=== PATIENT | female | born 1940 ===

== ENCOUNTER 2017-10-11 13:18 | Inpatient (IN) | payer MEDICARE, BC ==
[2017-10-11 13:28] VITALS: BMI 28.3
--- NOTE | 2017-10-11 13:46 | ED PDOC ---
Arrival/HPI - General Chief Complaint: Trauma Time Seen by Provider: 10/11/17 13:28 - History of Present Illness Narrative History of Present Illness (Text): 10/11/17 13:45 A 76 year old female, whose past medical history includes hypertension, hyperlipidemian and DM, presents to the emergency department complaining of left sided facial swelling status post fall. Patient reports shw was at [facility] when she started experiencing acute dizzyness and fell to the ground hitting her head. Patient reports dizzyness was resolved upon arrival to the emergency room. Patient denies any fever, chills, chest pain, shortness of breath, nausea, vomiting, diarrhea, urinary symptoms, back pain, neck pain, headache, or any other complaints. PMD: Dr. Raman Past Medical History - Provider Review Nursing Documentation Reviewed: Yes - Cardiac Hx Hypertension: Yes - Endocrine/Metabolic Hx Diabetes Mellitus Type 1: Yes - Psychiatric Hx Substance Use: No Family/Social History - Physician Review Nursing Documentation Reviewed: Yes Family/Social History: Unknown Family HX Smoking Status: Never Smoked Hx Alcohol Use: No Hx Substance Use: No Allergies/Home Meds Allergies/Adverse Reactions: Allergies No Known Allergies Allergy (Verified 10/11/17 13:32) Home Medications: Home Meds Medication Instructions Recorded Confirmed Losartan [Cozaar] 50 mg PO DAILY 10/11/17 10/11/17 amLODIPine [Norvasc] 5 mg PO DAILY 10/11/17 10/11/17 metFORMIN [glucOPHAGE] 500 mg PO BID 10/11/17 10/11/17 Review of Systems - Physician Review All systems were reviewed & negative as marked: Yes - Review of Systems Constitutional: absent: Fevers, Night Sweats Respiratory: absent: SOB Cardiovascular: absent: Chest Pain Gastrointestinal: absent: Diarrhea, Nausea, Vomiting Genitourinary Female: absent: Urine Output Changes Musculoskeletal: absent: Back Pain, Neck Pain Neurological: Dizziness (resolved upon arrival to Emergency room ), Other ( Swelling to the left side of her face ). absent: Headache Physical Exam Vital Signs Reviewed: Yes Vital Signs Temp Pulse Resp BP Pulse Ox 10/11/17 15:14 91 H 18 162/89 H 99 10/11/17 13:29 98.4 F 91 H 18 144/82 100 Temperature: Afebrile Blood Pressure: Normal Pulse: Tachycardic Respiratory Rate: Normal Appearance: Positive for: Well-Appearing, Non-Toxic, Comfortable Pain Distress: None Mental Status: Positive for: Alert and Oriented X 3 - Systems Exam Head: Present: Atraumatic, Normocephalic, Other. No: Tenderness, Contusion, Swelling, Ecchymosis, Abrasion, Laceration (hematoma under left eye ) Pupils: Present: PERRL Extroacular Muscles: Present: EOMI Conjunctiva: Present: Normal Mouth: Present: Moist Mucous Membranes Neck: Present: Normal Range of Motion Respiratory/Chest: Present: Clear to Auscultation, Good Air Exchange. No: Respiratory Distress, Accessory Muscle Use Cardiovascular: Present: Regular Rate and Rhythm, Normal S1, S2. No: Murmurs Abdomen: No: Tenderness, Distention, Peritoneal Signs Back: Present: Normal Inspection Upper Extremity: Present: Normal Inspection. No: Cyanosis, Edema Lower Extremity: Present: Normal Inspection. No: Edema Neurological: Present: GCS=15, CN II-XII Intact, Speech Normal Skin: Present: Warm, Dry, Normal Color. No: Rashes Psychiatric: Present: Alert, Oriented x 3, Normal Insight, Normal Concentration Medical Decision Making ED Course and Treatment: 10/11/17 13:51 Impression: A 76 year old female presents to the emergency department complaining of left sided facial swelling status post fall Plan: -- CT of Cervical Spine without contrast -- Heat CT without contrast -- CT of Maxillofacial without Contrast -- Labs -- CBC -- COAG -- Chest X-ray -- Urinalysis -- Reassess and disposition Prior Visits: Notes and results from previous visits were reviewed. Progress Notes: 10/11/17 13:56 EKG shows NSR at 91bpm with LAD and t wave inversions in V2-v3 and III with no prior for comparison 10/11/17 14:37 Dictator : Bahman Cooley MD PROCEDURE: CT MAXILLOFACIAL BONES WITHOUT CONTRAST IMPRESSION: There is soft tissue swelling and hematomas anterior to the left orbit and maxilla. There is no fracture. PROCEDURE: CT HEAD WITHOUT CONTRAST. IMPRESSION: Chronic microvascular changes. No acute intracranial findings. 10/11/17 14:[address] Raman, who is aware and agrees with emergency department management plan to admit patient to telemetry for further observation. 10/11/17 14:48 Dictator : Bahman Cooley MD PROCEDURE: CT CERVICAL SPINE WITHOUT CONTRAST IMPRESSION: No acute findings. 10/11/17 14:56 Dictator : Bahman Cooley MD Procedure: CHEST RADIOGRAPH, 1 VIEW IMPRESSION: No active disease. - Lab Interpretations Lab Results: 10/11/17 14:59 10/11/17 14:59 Lab Results 10/11/17 15:05: POC Glucose (mg/dL) 132 H 10/11/17 14:59: Sodium 138, Potassium 4.0, Chloride 100, Carbon Dioxide 23, Anion Gap 19, BUN 23 H, Creatinine 1.0, Est GFR ( Amer) > 60, Est GFR ( Non-Af Amer) 54, Random Glucose 129 H, Calcium 10.1, Total Bilirubin 1.5 H, AST 32, ALT 25, Alkaline Phosphatase 105, Lactate Dehydrogenase 434, Total Creatine Kinase 96, Troponin I < 0.01, Total Protein 8.2, Albumin 4.9 H, Globulin 3.4, Albumin/Globulin Ratio 1.4 10/11/17 14:59: PT 10.6, INR 0.93, APTT 33.4 10/11/17 14:59: WBC 10.1, RBC 4.79, Hgb 14.5, Hct 42.5, MCV 88.7, MCH 30.3, MCHC 34.1, RDW 12.9, Plt Count 239, MPV 9.9, Gran % 72.9 H, Lymph % (Auto) 20.9 L, Bollinger % (Auto) 5.6, Eos % (Auto) 0.3 L, Baso % (Auto) 0.3, Gran # 7.37 H, Lymph # (Auto) 2.1, Bollinger # (Auto) 0.6, Eos # (Auto) 0.0, Baso # (Auto) 0.03 10/11/17 14:48: Urine Color Yellow, Urine Appearance Clear, Urine pH 6.0, Ur Specific Imperial 1.015, Urine Protein Negative, Urine Glucose (UA) Negative, Urine Ketones Negative, Urine Blood Negative, Urine Nitrate Negative, Urine Bilirubin Negative, Urine Urobilinogen 1.0 H, Ur Leukocyte Esterase Moderate H, Urine RBC 0 - 2, Urine WBC 15 - 20, Ur Epithelial Cells 6 - 8, Amorphous Sediment Few, Urine Bacteria Many, Urine Other Uyeast - RAD Interpretation Radiology Orders: 10/11/17 13:41 CERVICAL SPINE W/O CONTRAST [CT] Stat HEAD W/O CONTRAST [CT] Stat MAXILLOFACIAL W/O CONTRAST [CT] Stat CHEST ONE VIEW [RAD] Stat - Medication Orders Current Medication Orders: Ceftriaxone Sodium (Rocephin) 1 gm IVPB STAT STA PRN Reason: Protocol Stop: 10/11/17 15:39 Discontinued Medications Aspirin (Aspirin Chewable) 81 mg PO STAT STA Stop: 10/11/17 15:15 Oxycodone/Acetaminophen (Percocet 5/325 Mg Tab) 1 tab PO STAT STA Stop: 10/11/17 13:59 Last Admin: 10/11/17 15:03 Dose: 1 tab MAR Pain Assessment Document 10/11/17 15:03 HI (Rec: 10/11/17 15:04 [place] [id number] Pain Reassessment Is this a pain reassessment? No Sleep Is patient sleeping during reassessment? No Presence of Pain Presence of Pain Yes Pain Scale Used Pain Scale Used Numeric Location Left, Right or Bilateral Left Pain Location Body Site Face Description Description Constant Tetanus/Reduced Diphtheria/Acell Pertussis (Boostrix Vaccine Inj) 0.5 ml IM .ONCE ONE Stop: 10/11/17 13:58 Last Admin: 10/11/17 15:04 Dose: 0.5 ml Immunization Registry Document 10/11/17 15:04 HI (Rec: 10/11/17 15:04 [place] [id number] Immunization Registry Consent Date 10/11/17 Disposition/Present on Arrival - Present on Arrival Any Indicators Present on Arrival: No History of DVT/PE: No History of Uncontrolled Diabetes: No Urinary Catheter: No History of Decub. Ulcer: No History Surgical Site Infection Following: None - Disposition Have Diagnosis and Disposition been Completed?: Yes Diagnosis: Fall, UTI (urinary tract infection) Disposition: HOSPITALIZED Disposition Time: 15:38 Patient Plan: Observation Condition: FAIR
[2017-10-11] MEDS ORDERED: TDAP Vaccine 0.5 mL Syr IM ONE (13:57)
[2017-10-11] MEDS ORDERED: Oxycodone/Acetaminophen 5/325 mg Tab PO STA (13:58)
--- NOTE | 2017-10-11 14:16 | CT ---
Date of service: 10/11/2017 PROCEDURE: CT HEAD WITHOUT CONTRAST. HISTORY: fall, L sided hematoma COMPARISON: None available. TECHNIQUE: Axial computed tomography images were obtained through the head/brain without intravenous contrast. Radiation dose: Total exam DLP = 989 mGy-cm. This CT exam was performed using one or more of the following dose reduction techniques: Automated exposure control, adjustment of the mA and/or kV according to patient size, and/or use of iterative reconstruction technique. FINDINGS: HEMORRHAGE: No intracranial hemorrhage. BRAIN: No mass effect or edema. Chronic microvascular changes are seen in the periventricular white matter. VENTRICLES: Unremarkable. No hydrocephalus. CALVARIUM: Unremarkable. PARANASAL SINUSES: Unremarkable as visualized. No significant inflammatory changes. MASTOID AIR CELLS: Unremarkable as visualized. No inflammatory changes. OTHER FINDINGS: None. IMPRESSION: Chronic microvascular changes. No acute intracranial findings
--- NOTE | 2017-10-11 14:21 | CT ---
Date of service: 10/11/2017 PROCEDURE: CT MAXILLOFACIAL BONES WITHOUT CONTRAST HISTORY: fall, L sided eye swelling COMPARISON: None available. TECHNIQUE: Contiguous axial CT images of the maxillofacial bones were obtained. Coronal and sagittal reformats were generated. Radiation dose: Total exam DLP = 853 mGy-cm. This CT exam was performed using one or more of the following dose reduction techniques: Automated exposure control, adjustment of the mA and/or kV according to patient size, and/or use of iterative reconstruction technique. FINDINGS: NASAL BONES: Unremarkable. ORBITS: There is soft tissue swelling and hematomas anterior to the left orbit and maxilla. There is no fracture PARANASAL SINUSES/ MASTOIDS: Clear. MAXILLA: Unremarkable. MANDIBLE/ TEMPOROMANDIBULAR JOINTS: Unremarkable. SKULL BASE: Unremarkable. TEMPORAL BONES: Middle ears and mastoid grossly unremarkable. OTHER FINDINGS: None. IMPRESSION: There is soft tissue swelling and hematomas anterior to the left orbit and maxilla. There is no fracture
--- NOTE | 2017-10-11 14:36 | CT ---
Date of service: 10/11/2017 PROCEDURE: CT Cervical Spine without contrast HISTORY: fall COMPARISON: None available. TECHNIQUE: Axial computed tomography images were obtained of the cervical spine without the use of intravenous contrast. Coronal and sagittal reformatted images were created and reviewed. Radiation dose: Total exam DLP = 421 mGy-cm. This CT exam was performed using one or more of the following dose reduction techniques: Automated exposure control, adjustment of the mA and/or kV according to patient size, and/or use of iterative reconstruction technique. FINDINGS: VERTEBRAE: No fracture. Normal alignment. No destructive bony lesion. Bridging anterior osteophytes are seen DISCS/SPINAL CANAL/NEURAL FORAMINA: No significant central canal or neural foraminal stenosis. Discs heights are grossly preserved. PARASPINAL SOFT TISSUES: Unremarkable. OTHER FINDINGS: None. IMPRESSION: No acute findings
--- NOTE | 2017-10-11 14:52 | RAD ---
Date of service: 10/11/2017 PROCEDURE: CHEST RADIOGRAPH, 1 VIEW HISTORY: fall COMPARISON: None available. FINDINGS: LUNGS: Clear. PLEURA: No pneumothorax or pleural fluid seen. CARDIOVASCULAR: Normal. OSSEOUS STRUCTURES: No significant abnormalities. VISUALIZED UPPER ABDOMEN: Normal. OTHER FINDINGS: None. IMPRESSION: No active disease.
[2017-10-11 15:14] LABS: BASO # 0.03 K/mm3 (0.0-2.0); BASO % 0.3 % (0.0-3.0); EOS % 0.3 % (1.5-5.0); GRAN # 7.37 (1.4-6.5); GRAN % 72.9 % (50.0-68.0); HEMOGLOBIN 14.5 g/dL (12.0-16.0); LYMPH # 2.1 (1.2-3.4); LYMPH % 20.9 % (22.0-35.0); MEAN CELL VOLUME 88.7 fl (80.0-105.0); MEAN CORPUSCULAR HEMOGLOBIN 30.3 pg (25.0-35.0); MEAN CORPUSCULAR HGB CONC 34.1 g/dl (31.0-37.0); MEAN PLATELET VOLUME 9.9 fl (7.0-11.0); MONO # 0.6 (0.1-0.6); MONO % 5.6 % (1.0-6.0); RBC 4.79 10^6/uL (3.5-6.1); RED CELL DISTRIBUTION WIDTH 12.9 % (11.5-14.5); WHITE BLOOD COUNT 10.1 10^3/ul (4.5-11.0)
[2017-10-11 15:17] LABS: URINE BILIRUBIN NEGATIVE (NEGATIVE); URINE BLOOD NEGATIVE (NEGATIVE); URINE GLUCOSE (UA) NEGATIVE (NEGATIVE); URINE LEUKOCYTE ESTERASE MODERATE Leu/uL (NEGATIVE); URINE PROTEIN NEGATIVE mg/dL (<30 mg/dL)
[2017-10-11 15:18] LABS: INR 0.93; PARTIAL THROMBOPLASTIN TIME 33.4 Seconds (25.1-36.5); PROTHROMBIN TIME 10.6 SECONDS (9.4-12.5)
[2017-10-11 15:22] LABS: ALB/GLOB RATIO 1.4 (1.1-1.8); ALBUMIN 4.9 g/dL (3.0-4.8); ALT/SGPT 25 U/L (7-56); AST/SGOT 32 U/L (14-36); BLOOD UREA NITROGEN 23 mg/dL (7-21); CALCIUM 10.1 mg/dL (8.4-10.5); GFR AFRICAN-AMERICAN > 60; GFR NON-AFRICAN AMERICAN 54
[2017-10-11 15:28] LABS: URINE APPEARANCE CLEAR (CLEAR); URINE COLOR YELLOW (YELLOW)
[2017-10-11 15:32] LABS: URINE BACTERIA MANY (NEG); URINE RBC 0 - 2 /hpf (0-2); URINE WBC 15 - 20 /hpf (0-6)
[2017-10-11 15:33] LABS: URINE AMORPHOUS SEDIMENT FEW
[2017-10-11 15:34] LABS: TROPONIN I < 0.01 ng/mL
[2017-10-11] MEDS ORDERED: cefTRIAXone (Rocephin) 1 gm Inj IVPB STA (15:38)
[2017-10-11] MEDS ORDERED: cefTRIAXone 1 GM/100 ML BAG IVPB STA (15:39)
--- NOTE | 2017-10-11 17:26 | CARD ---
APPROVED REPORT Date of service: 10/11/2017 EKG Measurement Heart [id number] CT [id number] <Conclusion> Normal sinus rhythm Left axis deviation Inferior infarct, age undetermined Abnormal ECG
[2017-10-11] MEDS: Insulin Reg-LOW-Coverage SC SCH (21:47)
[2017-10-12] MEDS: Insulin Reg-LOW-Coverage SC SCH ×4 (08:46→21:30)
[2017-10-12] MEDS ORDERED: cefTRIAXone 1 gm 1 GM/100 ML BAG IVPB SCH (10:00)
--- NOTE | 2017-10-12 13:15 | HP ---
Copied To: Mirza Raman MD Attending MD: Mirza Raman MD HISTORY OF PRESENT ILLNESS: A 76-year-old [place] female with a history of gait disturbance, history of slight shuffling of the right leg. [place] with her cane when she shuffled her feet, fell, striking her left face and chest, developed swelling in the left orbit closer to the eye. The patient was brought to the emergency room and was found to have urinary tract infection as well as was found to have severe swelling of the left face and left periorbital area; there was also some chest pain. The patient does have a history of [id number] diabetes mellitus, she is being controlled with insulin. She also was mildly hypertensive. She had been on gabapentin in the past, but had developed some nightmares from this, so it was stopped. She was placed on Namenda because of dementia and also placed on Cymbalta to control her neuropathy; however, that has not responded to the Cymbalta and still has neuropathic pain in the leg. She does have some weakness in the right lower extremity. PHYSICAL EXAMINATION: VITAL SIGNS: Stable; blood pressure is 154/91. She is afebrile. HEENT: Otherwise, her extraocular muscles are intact. There is tenderness and swelling of the left face, but no exquisite tenderness upon palpation. There is no evidence of fracture on x-ray. Her pupils are equal and reactive to light and accommodation. Her speech is fluent. CHEST: Clear. HEART: Regular sinus rhythm. There is no tenderness on palpation of the left chest. LABORATORY DATA: BUN and creatinine are 23 and 1. Blood sugar is 129. IMPRESSION: Shuffling gait, fall, contusion of the left face and left orbit, and left chest; urinary tract infection, [id number] diabetes mellitus, neuropathy and possible cerebrovascular accident. Mirza Raman MD
[2017-10-12] MEDS ORDERED: Gadodiamide 287 MG/ML VIAL (15ML) IV ONE (20:06)
[2017-10-13] MEDS: Insulin Reg-LOW-Coverage SC SCH ×4 (08:08→22:49)
--- NOTE | 2017-10-13 09:18 | PN ---
Copied To: Mirza Raman MD Attending MD: Mirza Raman MD DATE: 10/13/2017 SUBJECTIVE: A 76-year-old female, admitted after a syncopal episode, found to have urinary tract infection. PHYSICAL EXAMINATION: VITAL SIGNS: Stable. CHEST: Clear to auscultation. HEART: Regular sinus rhythm. NEUROLOGIC: The patient is awake, alert, oriented x3. ASSESSMENT AND PLAN: The patient had an MRI, we are awaiting results. She is doing physical therapy and occupational therapy. Her blood sugar has been controlled with insulin and metformin. She is on ceftriaxone for urinary tract infection. She is being evaluated for physical therapy and occupational therapy and possible TCU. The patient is stable. Mirza Raman MD
--- NOTE | 2017-10-13 10:09 | MRI ---
Date of service: 10/12/2017 PROCEDURE: MRI BRAIN WITH AND WITHOUT CONTRAST HISTORY: rt [id number] COMPARISON: None available. TECHNIQUE: Multiplanar, multisequence MR images of the brain were obtained with and without intravenous contrast enhancement. 15 cc of Omniscan FINDINGS: HEMORRHAGE: None DWI: No evidence of an acute or early subacute infarction. BRAIN PARENCHYMA: No mass,mass effect or edema. Chronic microvascular changes are seen in the periventricular white matter. ENHANCEMENT: No abnormal intracranial enhancement. VENTRICLES: Unremarkable. No hydrocephalus. CRANIUM: Unremarkable. ORBITS: Grossly unremarkable. PARANASAL SINUSES/MASTOIDS: Clear VASCULAR SYSTEM: Skull base flow voids intact. OTHER FINDINGS: The report concurs with the preliminary [facility] report. IMPRESSION: Severe chronic microvascular changes are seen in the periventricular white matter. No acute intracranial findings
[2017-10-13] MEDS: Cefpodoxime (Vantin) 200 mg Tab PO SCH ×2 (10:46→22:48)
[2017-10-13] MEDS: POLYETHYLENE GLYCOL 3350 17 GM/Dose PACKET PO SCH ×2 (14:02→17:31)
[2017-10-14] MEDS: Insulin Reg-LOW-Coverage SC SCH ×4 (08:03→22:35)
[2017-10-14] MEDS: Cefpodoxime (Vantin) 200 mg Tab PO SCH ×2 (09:39→22:35)
[2017-10-14] MEDS: POLYETHYLENE GLYCOL 3350 17 GM/Dose PACKET PO SCH (17:19)
[2017-10-15 05:59] VITALS: O2SAT 99
--- NOTE | 2017-10-15 08:48 | CP.PCM.DIS ---
<Ronna Ordoñez - Last Filed: 10/15/17 09:54> Provider - Provider Date of Admission: 10/12/17 15:18 Attending physician: Mirza Raman MD Primary care physician: Mirza Raman MD Time Spent in preparation of Discharge (in minutes): 30 Diagnosis - Discharge Diagnosis (1) Fall Status: Acute (2) UTI (urinary tract infection) Status: Acute Hospital Course - Lab Results Lab Results: Most Recent Lab Values WBC 10.1 10^3/ul (4.5-11.0) 10/11/17 14:59 RBC 4.79 10^6/uL (3.5-6.1) 10/11/17 14:59 Hgb 14.5 g/dL (12.0-16.0) 10/11/17 14:59 Hct 42.5 % (36.0-48.0) 10/11/17 14:59 MCV 88.7 fl (80.0-105.0) 10/11/17 14:59 MCH 30.3 pg (25.0-35.0) 10/11/17 14:59 MCHC 34.1 g/dl (31.0-37.0) 10/11/17 14:59 RDW 12.9 % (11.5-14.5) 10/11/17 14:59 Plt Count 239 10^3/uL (120.0-450.0) 10/11/17 14:59 MPV 9.9 fl (7.0-11.0) 10/11/17 14:59 Gran % 72.9 % (50.0-68.0) H 10/11/17 14:59 Lymph % (Auto) 20.9 % (22.0-35.0) L 10/11/17 14:59 Gem % (Auto) 5.6 % (1.0-6.0) 10/11/17 14:59 Eos % (Auto) 0.3 % (1.5-5.0) L 10/11/17 14:59 Baso % (Auto) 0.3 % (0.0-3.0) 10/11/17 14:59 Gran # 7.37 (1.4-6.5) H 10/11/17 14:59 Lymph # (Auto) 2.1 (1.2-3.4) 10/11/17 14:59 Gem # (Auto) 0.6 (0.1-0.6) 10/11/17 14:59 Eos # (Auto) 0.0 (0.0-0.7) 10/11/17 14:59 Baso # (Auto) 0.03 K/mm3 (0.0-2.0) 10/11/17 14:59 PT 10.6 SECONDS (9.4-12.5) 10/11/17 14:59 INR 0.93 10/11/17 14:59 APTT 33.4 Seconds (25.1-36.5) 10/11/17 14:59 Sodium 138 mmol/L (132-148) 10/11/17 14:59 Potassium 4.0 mmol/L (3.6-5.0) 10/11/17 14:59 Chloride 100 mmol/L (98-107) 10/11/17 14:59 Carbon Dioxide 23 mmol/L (21-33) 10/11/17 14:59 Anion Gap 19 (10-20) 10/11/17 14:59 BUN 23 mg/dL (7-21) H 10/11/17 14:59 Creatinine 1.0 mg/dl (0.7-1.2) 10/11/17 14:59 Est GFR ( Amer) > 60 10/11/17 14:59 Est GFR (Non-Af Amer) 54 10/11/17 14:59 POC Glucose (mg/dL) 167 mg/dL (65-110) H 10/15/17 07:26 Random Glucose 129 mg/dL (70-110) H 10/11/17 14:59 Calcium 10.1 mg/dL (8.4-10.5) 10/11/17 14:59 Total Bilirubin 1.5 mg/dL (0.2-1.3) H 10/11/17 14:59 AST 32 U/L (14-36) 10/11/17 14:59 ALT 25 U/L (7-56) 10/11/17 14:59 Alkaline Phosphatase 105 U/L (38-126) 10/11/17 14:59 Lactate Dehydrogenase 434 U/L (333-699) 10/11/17 14:59 Total Creatine Kinase 96 U/L (35-230) 10/11/17 14:59 Troponin I < 0.01 ng/mL 10/11/17 14:59 Total Protein 8.2 g/dL (5.8-8.3) 10/11/17 14:59 Albumin 4.9 g/dL (3.0-4.8) H 10/11/17 14:59 Globulin 3.4 gm/dL 10/11/17 14:59 Albumin/Globulin Ratio 1.4 (1.1-1.8) 10/11/17 14:59 Urine Color Yellow (YELLOW) 10/11/17 14:48 Urine Appearance Clear (CLEAR) 10/11/17 14:48 Urine pH 6.0 (4.7-8.0) 10/11/17 14:48 Ur Specific [place] 1.015 (1.005-1.035) 10/11/17 14:48 Urine Protein Negative mg/dL (<30 mg/dL) 10/11/17 14:48 Urine Glucose (UA) Negative mg/dL (NEGATIVE) 10/11/17 14:48 Urine Ketones Negative mg/dL (NEGATIVE) 10/11/17 14:48 Urine Blood Negative (NEGATIVE) 10/11/17 14:48 Urine Nitrate Negative (NEGATIVE) 10/11/17 14:48 Urine Bilirubin Negative (NEGATIVE) 10/11/17 14:48 Urine Urobilinogen 1.0 E.U./dL (<1 E.U./dL) H 10/11/17 14:48 Ur Leukocyte Esterase Moderate Bianca/uL (NEGATIVE) H 10/11/17 14:48 Urine RBC 0 - 2 /hpf (0-2) 10/11/17 14:48 Urine WBC 15 - 20 /hpf (0-6) 10/11/17 14:48 Ur Epithelial Cells 6 - 8 /hpf (0-5) 10/11/17 14:48 Amorphous Sediment Few 10/11/17 14:48 Urine Bacteria Many (NEG) 10/11/17 14:48 Urine Other Uyeast 10/11/17 14:48 - Hospital Course Hospital Course: Ms Magana, 76 F, with PMHx HTN/HLD, 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 [place] walking with a cane for weakness on RLE, when she shuffled her feet, fell and hit her L sided head on the groind, striking her face and chest, developed swelling L orbit close to eye. Patient denies dizziness, fever , chills, chest pain, shortness of breath, nausea, vomiting, diarrhea, urinary symptoms, back pain, neck pain, headache, or any other complaints. On admission : VS stable. CBC and CMP unremarkable. Urine culture showed gram negative lyndsey (). EKG NSR. traffic monitor specialist shows sinus normocardia. CT head microvascular changes, no acute finding. C-spine CT no acute finding. Maxilofacial CT showed soft tissue swelling anterior to L orbit and maxilla. no fracture. CXR negative for active disease. MRI head showed severe chronic microvascular changes in perventricular white matter. no acute intracranial findings. For UTI, pt will be on vantin x 3-5 days. Pt will be transferred to ICU for gait dysfunction and strengthening Discharge Exam - Head Exam Head Exam: NORMAL INSPECTION, NORMOCEPHALIC Additional comments: bruses in L eye, maxilla. no pain upon eye movement - Eye Exam Eye Exam: EOMI, Normal appearance, PERRL. absent: Scleral icterus - ENT Exam ENT Exam: Mucous Membranes Moist - Neck Exam Additional comments: supple - Respiratory Exam Respiratory Exam: Clear to PA & Lateral, NORMAL BREATHING PATTERN. absent: Rales, Rhonchi, Wheezes - Cardiovascular Exam Cardiovascular Exam: REGULAR RHYTHM, +S1, +S2. absent: Systolic Murmur - GI/Abdominal Exam GI & Abdominal Exam: Normal Bowel Sounds, Soft, Unremarkable. absent: Firm, Guarding, Rigid, Tenderness - Extremities Exam Extremities exam: normal capillary refill, pedal pulses present - Back Exam Back exam: absent: CVA tenderness (L), CVA tenderness (R) - Neurological Exam Neurological exam: Alert, CN II-XII Intact, Oriented x3 Additional comments: move all extremities equally motor sensory grossly intact - Psychiatric Exam Psychiatric exam: Normal Affect, Normal Mood - Skin Skin Exam: Dry, Warm Discharge Plan - Follow Up Plan Condition: FAIR Disposition: TRANSF TO SNF Instructions: Syncope (Fainting), Type 2 Diabetes, Preventing Falls in the Older Adult, Urinary Tract Infection, Adult (DC), Hyperglycemia, Adult (DC) Additional Instructions: 1. Continue taking home medications as prescribed 2. Follow-up with primary care physician, Dr. Raman in 1-2 weeks. 3. If symptoms return or worsen, please report to nearest emergency department or call 911. Referrals: Mirza Raman MD [Primary Care Provider] - Follow up with primary <Dangelo Lake - Last Filed: 10/15/17 17:40> Provider - Provider Date of Admission: 10/12/17 15:18 Attending physician: Mirza Raman MD Primary care physician: Mirza Raman MD Hospital Course - Lab Results Lab Results: Most Recent Lab Values WBC 10.1 10^3/ul (4.5-11.0) 10/11/17 14:59 RBC 4.79 10^6/uL (3.5-6.1) 10/11/17 14:59 Hgb 14.5 g/dL (12.0-16.0) 10/11/17 14:59 Hct 42.5 % (36.0-48.0) 10/11/17 14:59 MCV 88.7 fl (80.0-105.0) 10/11/17 14:59 MCH 30.3 pg (25.0-35.0) 10/11/17 14:59 MCHC 34.1 g/dl (31.0-37.0) 10/11/17 14:59 RDW 12.9 % (11.5-14.5) 10/11/17 14:59 Plt Count 239 10^3/uL (120.0-450.0) 10/11/17 14:59 MPV 9.9 fl (7.0-11.0) 10/11/17 14:59 Gran % 72.9 % (50.0-68.0) H 10/11/17 14:59 Lymph % (Auto) 20.9 % (22.0-35.0) L 10/11/17 14:59 Gem % (Auto) 5.6 % (1.0-6.0) 10/11/17 14:59 Eos % (Auto) 0.3 % (1.5-5.0) L 10/11/17 14:59 Baso % (Auto) 0.3 % (0.0-3.0) 10/11/17 14:59 Gran # 7.37 (1.4-6.5) H 10/11/17 14:59 Lymph # (Auto) 2.1 (1.2-3.4) 10/11/17 14:59 Gem # (Auto) 0.6 (0.1-0.6) 10/11/17 14:59 Eos # (Auto) 0.0 (0.0-0.7) 10/11/17 14:59 Baso # (Auto) 0.03 K/mm3 (0.0-2.0) 10/11/17 14:59 PT 10.6 SECONDS (9.4-12.5) 10/11/17 14:59 INR 0.93 10/11/17 14:59 APTT 33.4 Seconds (25.1-36.5) 10/11/17 14:59 Sodium 138 mmol/L (132-148) 10/11/17 14:59 Potassium 4.0 mmol/L (3.6-5.0) 10/11/17 14:59 Chloride 100 mmol/L (98-107) 10/11/17 14:59 Carbon Dioxide 23 mmol/L (21-33) 10/11/17 14:59 Anion Gap 19 (10-20) 10/11/17 14:59 BUN 23 mg/dL (7-21) H 10/11/17 14:59 Creatinine 1.0 mg/dl (0.7-1.2) 10/11/17 14:59 Est GFR ( Amer) > 60 10/11/17 14:59 Est GFR (Non-Af Amer) 54 10/11/17 14:59 POC Glucose (mg/dL) 234 mg/dL (65-110) H 10/15/17 10:55 Random Glucose 129 mg/dL (70-110) H 10/11/17 14:59 Calcium 10.1 mg/dL (8.4-10.5) 10/11/17 14:59 Total Bilirubin 1.5 mg/dL (0.2-1.3) H 10/11/17 14:59 AST 32 U/L (14-36) 10/11/17 14:59 ALT 25 U/L (7-56) 10/11/17 14:59 Alkaline Phosphatase 105 U/L (38-126) 10/11/17 14:59 Lactate Dehydrogenase 434 U/L (333-699) 10/11/17 14:59 Total Creatine Kinase 96 U/L (35-230) 10/11/17 14:59 Troponin I < 0.01 ng/mL 10/11/17 14:59 Total Protein 8.2 g/dL (5.8-8.3) 10/11/17 14:59 Albumin 4.9 g/dL (3.0-4.8) H 10/11/17 14:59 Globulin 3.4 gm/dL 10/11/17 14:59 Albumin/Globulin Ratio 1.4 (1.1-1.8) 10/11/17 14:59 Urine Color Yellow (YELLOW) 10/11/17 14:48 Urine Appearance Clear (CLEAR) 10/11/17 14:48 Urine pH 6.0 (4.7-8.0) 10/11/17 14:48 Ur Specific [place] 1.015 (1.005-1.035) 10/11/17 14:48 Urine Protein Negative mg/dL (<30 mg/dL) 10/11/17 14:48 Urine Glucose (UA) Negative mg/dL (NEGATIVE) 10/11/17 14:48 Urine Ketones Negative mg/dL (NEGATIVE) 10/11/17 14:48 Urine Blood Negative (NEGATIVE) 10/11/17 14:48 Urine Nitrate Negative (NEGATIVE) 10/11/17 14:48 Urine Bilirubin Negative (NEGATIVE) 10/11/17 14:48 Urine Urobilinogen 1.0 E.U./dL (<1 E.U./dL) H 10/11/17 14:48 Ur Leukocyte Esterase Moderate Bianca/uL (NEGATIVE) H 10/11/17 14:48 Urine RBC 0 - 2 /hpf (0-2) 10/11/17 14:48 Urine WBC 15 - 20 /hpf (0-6) 10/11/17 14:48 Ur Epithelial Cells 6 - 8 /hpf (0-5) 10/11/17 14:48 Amorphous Sediment Few 10/11/17 14:48 Urine Bacteria Many (NEG) 10/11/17 14:48 Urine Other Uyeast 10/11/17 14:48 - Hospital Course Hospital Course: Pt seen and examined. I have reviewed the note of the biomedical engineering technician and agree with it. I have discussed the assessment and plan with the resident. I have reviewed the patient's labs and medications. Pt had a fall. She is going to TCU for evaluation. Pt with UTI due to gram negative rods. Pt on Vantin for UTI. PT on going. f/u PMD. I am covering Dr Raman.
[2017-10-15] MEDS: Insulin Reg-LOW-Coverage SC SCH ×2 (08:52→11:46)
[2017-10-15] MEDS: POLYETHYLENE GLYCOL 3350 17 GM/Dose PACKET PO SCH (10:48)
[2017-10-15] MEDS: Cefpodoxime (Vantin) 200 mg Tab PO SCH (10:48)
[2017-10-15 12:13] VITALS: BP 143/84; PULSE 94; RESP 19; TEMP 98.8
== END 2017-10-15 15:42 | DRG 690 ==
LOC: ED 13:18 → ERH 15:13 → 2RNO 18:18 → OBSVTOIN 10-12 15:18
PROVIDERS: ADMIT Internal Medicine; ATTEND Internal Medicine
PROC: 3E0234Z Introduction of Serum, Toxoid and Vaccine into Muscle, Percutaneous Approach (ICD-10-PCS; principal; 2017-10-11)
DX: N39.0 Urinary tract infection, site not specified (principal); I10 Essential (primary) hypertension; E78.5 Hyperlipidemia, unspecified; F03.90 Unspecified dementia, unspecified severity, without behavioral disturbance, psychotic disturbance, mood disturbance, and anxiety; E11.42 Type 2 diabetes mellitus with diabetic polyneuropathy; S00.83XA Contusion of other part of head, initial encounter; S05.12XA Contusion of eyeball and orbital tissues, left eye, initial encounter; W18.30XA Fall on same level, unspecified, initial encounter; Y92.59 Other trade areas as the place of occurrence of the external cause; Z23 Encounter for immunization

== ENCOUNTER 2017-10-15 15:42 | Inpatient (IN) | payer OTHER, BC ==
[2017-10-15] MEDS: Insulin Reg-LOW-Coverage SC SCH ×2 (17:07→23:00)
[2017-10-15] MEDS: POLYETHYLENE GLYCOL 3350 17 GM/Dose PACKET PO SCH (17:59)
[2017-10-15 21:38] VITALS: BMI 26.7
[2017-10-15] MEDS ORDERED: Pneumococcal 23-Valent Vaccine IM ONE (21:38)
[2017-10-16] MEDS: Insulin Reg-LOW-Coverage SC SCH ×4 (07:34→21:26)
[2017-10-16] MEDS: POLYETHYLENE GLYCOL 3350 17 GM/Dose PACKET PO SCH ×2 (10:19→17:54)
--- NOTE | 2017-10-16 12:05 | CP.PCM.HP ---
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 On 10/12, pt presents to the emergency department complaining of left sided facial swelling status post fall. [place] walking with a cane for weakness on RLE, when she shuffled her feet, fell and hit her L sided head on the groind, striking her face and chest, developed swelling L orbit close to eye. Patient denies dizziness, fever, chills, chest pain, shortness of breath, nausea, vomiting, diarrhea, urinary symptoms, back pain, neck pain, headache, or any other complaints. On admission: VS stable. CBC and CMP unremarkable. Urine culture showed gram negative lyndsey (10/11). EKG NSR. youth nutritional monitor shows sinus normocardia. CT head microvascular changes, no acute finding. C-spine CT no acute finding. Maxilofacial CT showed soft tissue swelling anterior to L orbit and maxilla. no fracture. CXR negative for active disease. MRI head showed severe chronic microvascular changes in perventricular white matter. no acute intracranial findings. For UTI, pt will be on vantin x 3-5 days. Pt will be transferred to ICU for gait dysfunction and strengthening. Her active complaint is constipation. 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) - HEMATOLOGICAL/ONCOLOGICAL Hx Blood Disorders: No - INTEGUMENTARY Hx Dermatological Problems: No - MUSCULOSKELETAL/RHEUMATOLOGICAL Hx Falls: Yes - GASTROINTESTINAL Hx Gastrointestinal Disorders: Yes (HEMORRHOIDECTOMY,CONSTIPATION) - GENITOURINARY/GYNECOLOGICAL Hx Genitourinary Disorders: Yes (UTI,URGENCY) Hx Reproductive Disorders: No - PSYCHIATRIC Hx Psychophysiologic Disorder: Yes Hx Depression: Yes Hx Substance Use: No - SURGICAL HISTORY Hx Surgeries: Yes (Hemmhroidectomy and Thyroidectomy) Meds Allergies/Adverse Reactions: Allergies Allergy/AdvReac Type Severity Reaction Status Date / Time No Known Allergies Allergy Verified 10/15/17 18:35 Physical Exam - Constitutional Appears: No Acute Distress - Head Exam Head Exam: ATRAUMATIC, NORMAL INSPECTION, NORMOCEPHALIC - Eye Exam Eye Exam: EOMI, Normal appearance, PERRL. absent: Scleral icterus Pupil Exam: NORMAL ACCOMODATION - ENT Exam ENT Exam: Mucous Membranes Moist - Neck Exam Additional comments: supple - Respiratory Exam Respiratory Exam: Clear to Auscultation Bilateral, NORMAL BREATHING PATTERN. absent: Rales, Rhonchi, Wheezes - Cardiovascular Exam Cardiovascular Exam: REGULAR RHYTHM, +S1, +S2 - GI/Abdominal Exam GI & Abdominal Exam: Normal Bowel Sounds, Soft. absent: Distended, Firm, Guarding, Rigid, Tenderness - Extremities Exam Extremities exam: Positive for: pedal pulses present. Negative for: calf tenderness, pedal edema Additional comments: R toe ecchymosis - Back Exam Back exam: absent: CVA tenderness (L), CVA tenderness (R) - Neurological Exam Neurological exam: Alert, CN II-XII Intact, Oriented x3, Reflexes Normal Additional comments: Motor and sensory grossly intact - Psychiatric Exam Psychiatric exam: Normal Affect, Normal Mood - Skin Skin Exam: Dry, Warm Results - Vital Signs Recent Vital Signs: Last Vital Signs Temp 98.4 F 10/15/17 21:23 Pulse 66 10/16/17 05:43 Resp 18 10/15/17 21:23 BP 172/93 H 10/16/17 10:55 Pulse Ox - Labs Labs: Laboratory Results - last 24 hr 10/15/17 16:50 POC Glucose (mg/dL) 118 H Assessment & Plan - Assessment and Plan (Free Text) Plan: Gait instablility s/p mechanical fall - physical therapy DM with neuropathy - ISSS, metformin, gabapentin. Per hx, pt had nightmare with gabapentin requiring a switch to cymbalta in the past. Will switch the pain meds prn HTN - amlodipine Constipation - miralax BID, Add one dose senokot today. if not resolve tomorrow , pt agree to glycerin supp. UTI - resolved. Had 3 days of vantin from 10/13 - 10/15 Dementia on namenda - currently on hold s/r/d/w Dr Lake
[2017-10-16] MEDS ORDERED: Magnesium Citrate Oral SOL (300 ml) PO ONE (15:09)
[2017-10-16] MEDS ORDERED: Docusate-Senna 50 mg-8.6 mg Tab PO ONE (20:00)
[2017-10-17] MEDS: Insulin Reg-LOW-Coverage SC SCH ×3 (06:49→17:08)
[2017-10-17] MEDS: POLYETHYLENE GLYCOL 3350 17 GM/Dose PACKET PO SCH ×2 (09:49→17:09)
--- NOTE | 2017-10-17 23:14 | PN ---
Copied To: Mirza Raman MD Attending MD: Mirza Raman MD DATE: 10/17/2017 SUBJECTIVE: A 76-year-old Dominican female, admitted to TCU from [facility]. She is doing physical therapy, occupational therapy. She has had some episodes of constipation, which have resolved. She still has difficulty ambulating and walking. PHYSICAL EXAMINATION: VITAL SIGNS: Her blood pressure is 134/81, temperature is 98.5. Blood sugars are well controlled. Vital signs are stable. CHEST: Clear to auscultation. HEART: Regular sinus rhythm. PLAN: To continue physical therapy and occupational therapy, and eventually transfer her back home to follow as an outpatient. Mirza Raman MD
[2017-10-18] MEDS: Insulin Reg-LOW-Coverage SC SCH ×5 (00:59→21:19)
--- NOTE | 2017-10-18 09:54 | PN ---
Copied To: Mirza Raman MD Attending MD: Mirza Raman MD DATE: 10/18/2017 SUBJECTIVE: A 76-year-old white [place] Citizen female in TCU, status post syncopal episode at home. The patient is doing physical therapy and occupational therapy. She is still weak. She has no shortness of breath, no chest pain. PHYSICAL EXAMINATION: GENERAL: The patient has had mild dementia. VITAL SIGNS: Blood pressure 134/81. ABDOMEN: Soft, is moving her bowels well. EXTREMITIES: Without cyanosis, clubbing or edema. ASSESSMENT AND PLAN: We will continue physical therapy and occupational therapy and we will restart the patient on Namenda. She has also non-insulin diabetes. Mirza Raman MD
[2017-10-18] MEDS: POLYETHYLENE GLYCOL 3350 17 GM/Dose PACKET PO SCH ×2 (10:40→17:24)
[2017-10-19] MEDS: Insulin Reg-LOW-Coverage SC SCH ×4 (06:35→22:14)
--- NOTE | 2017-10-19 09:07 | PN ---
Copied To: Mirza Raman MD Attending MD: Mirza Raman MD DATE: 10/19/2017 SUBJECTIVE: A 76-year-old Bangladeshi female, admitted after multiple falls, history of dementia. The patient is complaining of some mild dementia 2 times yesterday. No fever or chills. No blood in the stool. The patient is off antibiotics. She was treated for a urinary tract infection. Stool for C. diff will be ordered. The patient will be on a BRAT diet. She is doing physical therapy and occupational therapy, doing well. PHYSICAL EXAMINATION: CHEST: Clear to auscultation and percussion. HEART: Regular sinus rhythm. ABDOMEN: Soft. Bowel sounds are normoactive. No masses palpable. Nontender. IMPRESSION: Antibiotic-associated diarrhea, rule out Clostridium difficile. Hold the antibiotics. Stool for Clostridium difficile toxin antibody. BRAT diet. Continue physical therapy and occupational therapy. Mirza Raman MD
[2017-10-20] MEDS: Insulin Reg-LOW-Coverage SC SCH ×4 (06:51→21:33)
--- NOTE | 2017-10-20 10:14 | PN ---
Copied To: Mirza Raman MD Attending MD: Mirza Raman MD DATE: 10/20/2017 A 76-year-old white Burm[place] female in U, doing physical therapy and occupational therapy. The patient is doing well. Vital signs are stable. She has no further diarrhea. She is tolerating her diet well. She is afebrile, 115/72. She is on dementia medications. She will be having a rolling walker for home. She will continue her therapy if physical examination is unchanged. Plan is for discharge on Wednesday. Mirza Raman MD
[2017-10-20 16:22] VITALS: RESP 18
[2017-10-21] MEDS: Insulin Reg-LOW-Coverage SC SCH ×4 (06:59→21:26)
[2017-10-21 10:12] VITALS: TEMP 98.2; O2SAT 99
--- NOTE | 2017-10-21 13:58 | PN ---
Copied To: Mirza Raman MD Attending MD: Mirza Raman MD DATE: 10/21/2017 SUBJECTIVE: A 76-year-old Jordanian female admitted to TCU from [facility]. The patient is getting physical therapy and occupational therapy. She has mild dementia. She is on Namenda. She is on gabapentin for neuropathy. She is progressing well. She has a walker and a cane. A walker has been ordered for her at home. She will finish her physical therapy and occupational therapy. She will be discharged home mostly in the morning and she will follow up as an outpatient. Physical examination is unchanged. Laboratory data are unremarkable. Her vital signs are stable. Mirza Raman MD
[2017-10-22] MEDS: Insulin Reg-LOW-Coverage SC SCH (08:42)
[2017-10-22 10:24] VITALS: BP 153/95; PULSE 89
--- NOTE | 2017-10-22 22:08 | CP.PCM.DIS ---
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 [place] walking with a cane for weakness on RLE, when she shuffled her feet, fell and hit her L sided head on the ground, striking her face and chest, developed swelling L orbit close to eye. Patient was treated with norvasc , aspirin, vantin, rocephin, gabapentin, insulin, cozaar, percocet, miralax, and dulcolax. On admission: VS stable. CBC and CMP unremarkable. Urine culture showed gram negative lyndsey (10/11). EKG NSR. environmental monitoring technician shows normal sinus rhythm. CT head showed no acute finding. C-spine CT showed no acute findings. Maxilofacial CT showed soft tissue swelling anterior to L orbit and maxilla, no fracture. CXR negative for active disease. MRI head showed severe chronic microvascular changes in perventricular white matter, no acute intracranial findings. For UTI, pt will be on vantin x 3-5 days. Patient was instructed to continue home medications as prescribed by her physician. Patient also was told that her medications were sent to her pharmacy. Patient further informed to return to the ED for worsening or newly concerning symptoms.Patient is now medically stable for discharge. Discharge Exam - Head Exam Head Exam: ATRAUMATIC, NORMAL INSPECTION, NORMOCEPHALIC - Additional Findings Additional findings: Head Exam: NORMAL INSPECTION, NORMOCEPHALIC - Eye Exam Eye Exam: EOMI, Normal appearance, PERRL. absent: Scleral icterus - ENT Exam ENT Exam: Mucous Membranes Moist - Neck Exam Additional comments: supple - Respiratory Exam Respiratory Exam: Clear to PA & Lateral, NORMAL BREATHING PATTERN. absent: Rales, Rhonchi, Wheezes - Cardiovascular Exam Cardiovascular Exam: REGULAR RHYTHM, +S1, +S2. absent: Systolic Murmur - GI/Abdominal Exam GI & Abdominal Exam: Normal Bowel Sounds, Soft, Unremarkable. absent: Firm, Guarding, Rigid, Tenderness - Extremities Exam Extremities exam: normal capillary refill, pedal pulses present - Back Exam Back exam: absent: CVA tenderness (L), CVA tenderness (R) - Neurological Exam Neurological exam: Alert, CN II-XII Intact, Oriented x3 Discharge Plan - Follow Up Plan Condition: GOOD Disposition: HOME/ ROUTINE Instructions: Preventing Falls in the Older Adult, Urinary Tract Infection, Adult (DC), Syncope (Fainting) (DC), Urinary Tract Infection in Women (DC), Urinary Tract Infection in Men (DC), Dysuria (GEN) Referrals: Mirza Raman MD [Primary Care Provider] - <Narciso Olivarez - Last Filed: 10/23/17 19:23> Provider - Provider Date of Admission: 10/15/17 15:42 Attending physician: Narciso Olivarez MD Primary care physician: Mirza Raman MD Hospital Course - Lab Results Lab Results: Most Recent Lab Values POC Glucose (mg/dL) 138 mg/dL (65-110) H 10/22/17 11:23 Attending/Attestation - Attestation I have personally seen and examined this patient.: Yes I have fully participated in the care of the patient.: Yes I have reviewed all pertinent clinical information, including history, physical exam and plan: Yes Notes (Text): 10/22/17 76 year old female initially admitted after mechanical fall at home. She was in TCU for rehab therapy. She completed antibiotics for UTI. She has been doing well in TCU. Patient is discharged home to follow up with pmd Dr. Raman, whom I am covering today. Narciso Olivarez MD Hospitalist.
== END 2017-10-22 13:33 | disposition home health service (06) | DRG 945 ==
LOC: TRCU 15:42
PROVIDERS: ADMIT Internal Medicine; ATTEND Internal Medicine
PROC: F07Z9FZ Gait Training/Functional Ambulation Treatment using Assistive, Adaptive, Supportive or Protective Equipment (ICD-10-PCS; principal; 2017-10-16)
PROC: F08Z4FZ Home Management Treatment using Assistive, Adaptive, Supportive or Protective Equipment (ICD-10-PCS; 2017-10-16)
DX: R53.1 Weakness (principal); R26.2 Difficulty in walking, not elsewhere classified; N39.0 Urinary tract infection, site not specified; K52.1 Toxic gastroenteritis and colitis; E11.40 Type 2 diabetes mellitus with diabetic neuropathy, unspecified; I10 Essential (primary) hypertension; F03.90 Unspecified dementia, unspecified severity, without behavioral disturbance, psychotic disturbance, mood disturbance, and anxiety; K59.00 Constipation, unspecified; T36.95XA Adverse effect of unspecified systemic antibiotic, initial encounter; E78.5 Hyperlipidemia, unspecified; R29.6 Repeated falls; Z91.81 History of falling